=== PATIENT | female | born 1955 | race Caucasian/White ===

== ENCOUNTER 2016-05-26 09:59 | Emergency (ER) | payer OTHER ==
[~2016-05-26] VITALS: Ht 167.6 cm; Wt 82.5 kg
[2016-05-26 10:01] VITALS: BP 142/75; PULSE 78; RESP 16; TEMP 98.1; O2SAT 97
--- NOTE | 2016-05-26 10:23 | PD ---
HPI Chief Complaint: Back/ Neck Pain or Injury Time Seen by Provider: 10:23 Travel History International Travel<30 days: No Contact w/Intl Traveler<30days: No Traveled to known affect area: No History of Present Illness HPI 61-year-old female presents to the emergency Department with complaint of right- sided sciatica for the last 3-4 days. Has history of chronic low back pain for many years. Denies injury, strain, heavy lifting. Denies encopresis, incontinence, saddle anesthesias. Denies fever, chills, nausea, vomiting, abdominal pain. Denies dysuria, urgency, frequency. Denies IV drug use. Denies cancer. Has used icy hot to the right lower back with good relief of pain. Has taken ibuprofen with good relief of pain. Pain is aggravated with walking. No known allergies. No other modifying factors or associated signs and symptoms. PFSH Past Medical History Cardiovascular Problems: Yes (HEART PALPITATIONS) Diabetes: Yes Past Surgical History Hysterectomy: Yes Social History Tobacco Use: No Allergies-Medications (Allergen,Severity, Reaction): Coded Allergies: No Known Allergies (Unverified , 05/26/16) Reported Meds & Prescriptions Reported Meds & Active Scripts Active Ibuprofen 800 Mg Tab 800 Mg PO Q6HR PRN Robaxin (Methocarbamol) 500 Mg Tab 500 Mg PO QID PRN Review of Systems Except as stated in HPI: all other systems reviewed are Neg Physical Exam Narrative GENERAL: Well-nourished, well-developed female patient, in no acute distress; afebrile, nontoxic-appearing SKIN: Warm and dry. HEAD: Atraumatic. Normocephalic. EYES: Pupils equal and round. No scleral icterus. No injection or drainage. ENT: Mucosa pink and moist. Airway patent. NECK: Trachea midline. CARDIOVASCULAR: Regular rate. RESPIRATORY: No accessory muscle use. GASTROINTESTINAL: Round. MUSCULOSKELETAL: Bilateral lower extremities supple and non-tense with 2+ pedal pulses and sensory intact; with full range of motion and 5/5 strength. 2 + DTRs bilaterally. Active dorsiflexion and extension of bilateral feet. Bilateral straight leg raise is negative for low back pain. Ambulatory in room with normal gait. Sitting up in bed at 90. No obvious deformities. No clubbing. No cyanosis. No edema. BACK: No midline point tenderness on palpation of the lumbar, thoracic, or cervical spine. Tenderness on palpation of right iliosacral area. No obvious deformities. NEUROLOGICAL: Awake and alert. Oriented 3. No obvious cranial nerve deficits. Motor grossly within normal limits. Normal speech. Moves all extremities. 5/5 strength to all extremities. Sensory intact. PSYCHIATRIC: Appropriate mood and affect; insight and judgment normal. Data Data Last Documented VS Vital Signs Date Time Temp Pulse Resp B/P Pulse Ox O2 Delivery O2 Flow Rate FiO2 05/26/16 10:01 98.1 78 16 142/75 97 Orders Methocarbamol (Robaxin) (05/26/16 10:30) Ibuprofen (Motrin) (05/26/16 10:30) [facility] Medical Decision Making Medical Screen Exam Complete: Yes Emergency Medical Condition: Yes Medical Record Reviewed: Yes Differential Diagnosis Acute exacerbation of chronic low back pain, right-sided sciatica, low back strain Narrative Course 61-year-old female with chronic low back pain with right-sided sciatica. Denies encopresis, incontinence, saddle anesthesias. Denies IV drug use, cancer. Patient is afebrile nontoxic appearing. She is ambulatory in the room with a normal gait. No midline point tenderness on palpation of the lumbar spine. Robaxin and ibuprofen administered in the ER. Robaxin and ibuprofen prescribed for home. Patient verbalizes understanding and agreement with treatment plan. Patient is medically cleared and stable for discharge. Discussed reasons to return to the emergency department. Instructed patient to follow up with primary care provider. Patient agrees with treatment plan. The patients vital signs are stable and the patient is stable for outpatient follow- up and treatment. Patient discharged home, stable and in no acute distress. Diagnosis Primary Impression: Right-sided low back pain with sciatica Qualified Code: M54.41 - Right-sided low back pain with right-sided sciatica, unspecified chronicity Referrals: Primary Care Physician Patient Instructions: General Instructions, Sciatica (ED) Additional Instructions: Tylenol or ibuprofen as directed and as needed for pain Robaxin as prescribed and as needed for muscle spasms Heating pad and/or ice to affected area to reduce pain Avoid aggravating activities; increase activity as tolerated Follow-up with primary care provider Return to emergency department immediately with worsening of symptoms Med/Other Pt SpecificInfo: Prescription(s) given Scripts Ibuprofen 800 Mg [id number] Mg PO Q6HR PRN (PAIN) #30 TAB Ref 0 Prov:Mary Tomas 05/26/16 Methocarbamol (Robaxin)500 Mg [id number] Mg PO QID PRN (MUSCLE SPASM) #30 TAB Ref 0 Prov:Mary Tomas 05/26/16 Disposition: 01 DISCHARGE HOME Condition: Stable Mary Tomas May 26, 2016 10:23
[2016-05-26] MEDS ORDERED: ROBA500T PO (10:25)
[2016-05-26] MEDS ORDERED: IBUP800T23 PO (10:25)
[2016-05-26] MEDS: IBUPROFEN 800 MG TAB PO ONE (10:39)
[2016-05-26] MEDS: METHOCARBAMOL 500 MG TAB PO ONE (10:39)
== END 2016-05-26 10:53 | disposition home or self-care (01) ==
LOC: NEPK 09:59
DX: M54.41 Lumbago with sciatica, right side (principal); E11.9 Type 2 diabetes mellitus without complications
CPT/HCPCS: 99282